=== PATIENT | male | born 1950 | race Caucasian/White ===

== ENCOUNTER 2018-11-12 13:52 | Day surgery (SDC) | payer MEDICARE, OTHER ==
[~2018-11-12] VITALS: Ht 180.3 cm; Wt 108.9 kg
[~2018-11-12 13:52] MED LIST: ASPIR 8181 MG PO; CALCIUM600 MG PO; DICLOFENAC SOD100 MG PO; FLUTICASONE PRO16 GM NS; KEFLEX500 MG PO; METOPROLOL SUCC25 MG PO; PRAVASTATIN SOD10 MG PO; TRAMADOL HCL50 MG PO; ZOCOR10 MG PO
[2018-11-12] MEDS ORDERED: FLOMAX0.4 MG PO (14:14)
--- NOTE | 2018-11-12 15:56 | NUR ---
11/12/18 1556 Phoebe Lama PT ARRIVES TO PACU SLIGHTLY AWAKE, BUT GROGGY.
--- NOTE | 2018-11-13 12:28 | OR ---
[facility] [address] [place], [place] [address] Signed DATE OF OPERATION: 11/12/2018 SURGEON: King Rene MD PREOPERATIVE DIAGNOSIS: History of cecal polyp in 2012 (adenoma). PREOPERATIVE DIAGNOSES: 1. No evidence of recurrent polyps. 2. 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 PROCEDURE: Total colonoscopy to cecum. ANESTHESIA: Intravenous sedation, fentanyl 100 mcg, and Versed 7 mg. INDICATION: A 67-year-old white man, a patient of Kristen Shay and underwent colonoscopy by me in 2011, which showed an adenomatous polyp of the cecum. I would recommend repeat colonoscopy in 5 years. Instead, he presents at this time for consideration of colonoscopy. He has had no bleeding, diarrhea, or constipation problems. He does have significant BPH symptoms including increased urinary frequency. I prescribed Flomax 0.4 mg daily, anticipating a clinical result before formal urologic evaluation if necessary. He was admitted at this time to undergo surveillance colonoscopy. He understands the risks of bleeding, infection, and perforation. FINDINGS: The prep was excellent. Complete colonoscopy was undertaken to the cecum without question. There was no sign of recurrent or persistent polyp of the cecum or elsewhere. There were diverticula of the sigmoid. DESCRIPTION OF PROCEDURE: The patient was brought to the endoscopy suite and placed in lateral decubitus position given intravenous sedation to the point of slurred speech and nystagmus. Digital rectal examination was normal. An Olympus video colonoscope was passed in the rectum and manipulated throughout the colon ultimately intubating the cecum itself. The ileocecal valve and appendiceal orifice were normal. Scope was withdrawn from that point and examination throughout Electronically Signed By: KING RENE MD 11/13/18 1228 PATIENT NAME: DEXTER RIVAS OPERATIVE REPORT DATE OF : 54 REPORT #: [id number] PHYSICIAN: KING RENE MD PCP: NERI SHAY PA-C REPORT IS CONFIDENTIAL AND NOT TO BE RELEASED WITHOUT AUTHORIZATION [facility] [address] [place], [place] [address] Signed showed no sign of abnormality other than a few diverticula of the sigmoid and left colon. Retroflexed view was normal overall. The scope was removed and the patient was taken to recovery room in good condition. CONCLUDING DIAGNOSIS: No evidence of recurrent polyps. PLAN: Recommend repeat colonoscopy in 5 years, sooner if clinically indicated. He will return to the ongoing care of Kristen Shay. Further consideration of urologic evaluation will be undertaken under the direction of his primary provider. MD BIRD Middleton/CORNELIO /[id number] cc: TAYE Hopson Copies: ~ Electronically Signed By: KING RENE MD 11/13/18 1228 PATIENT NAME: DEXTER RIVAS OPERATIVE REPORT DATE OF : 54 REPORT #: [id number] PHYSICIAN: KING RENE MD PCP: NERI SHAY PA-C REPORT IS CONFIDENTIAL AND NOT TO BE RELEASED WITHOUT AUTHORIZATION
== END 2018-11-12 16:28 | disposition home or self-care (01) ==
LOC: DS 13:52 → OPS 13:52 → DS 14:00 → OPS 14:00
PROVIDERS: Surgery
PROC: 0DJD8ZZ Inspection of Lower Intestinal Tract, Via Natural or Artificial Opening Endoscopic (ICD-10-PCS; principal; 2018-11-12 14:00)
DX: Z12.11 Encounter for screening for malignant neoplasm of colon (principal); K57.30 Diverticulosis of large intestine without perforation or abscess without bleeding; E78.5 Hyperlipidemia, unspecified; I10 Essential (primary) hypertension; R35.0 Frequency of micturition; R39.12 Poor urinary stream; Z98.890 Other specified postprocedural states; Z86.010 Personal history of colon polyps
CPT/HCPCS: J2250; J3010; J7120

== ENCOUNTER 2020-01-19 05:45 | Day surgery (SDC) | payer MEDICARE, OTHER ==
[~2020-01-19] VITALS: Ht 180.3 cm; Wt 106.6 kg
--- NOTE | ~2020-01-19 | OR ---
[facility] [address] [facility] [place] [address] [place] DATE OF OPERATION: 01/19/2020 SURGEON: Jason Peters MD PREOPERATIVE DIAGNOSES: 1. Subcentimeter bladder mass, discovered on recent cystoscopy. 2. Benign prostatic hyperplasia with lower urinary tract symptoms. POSTOPERATIVE DIAGNOSES: 1. Subcentimeter bladder mass, discovered on recent cystoscopy. 2. Benign prostatic hyperplasia with lower urinary tract symptoms. NAMES OF PROCEDURES: 1. Transurethral resection of bladder tumor-small. 2. Transurethral resection of prostate. ANESTHESIA: General. ESTIMATED BLOOD LOSS: 30 mL. COMPLICATIONS: None. SPECIMENS: 1. Subcentimeter papillary mass excised from area just superior to the right ureteral orifice. This was placed in a specimen cup and sent to pathology for evaluation. 2. Prostate chips, also sent in a separate cup to pathology for evaluation. DRAINS: A 22-Syrian 3-way Bello catheter, connected to continuous bladder irrigation. INDICATIONS FOR PROCEDURE: Mr. Sousa is a very pleasant 69-year-old gentleman, who was recently discovered to have a subcentimeter papillary mass just superior to the right ureteral orifice on diagnostic cystoscopy. At that time, he was also experiencing severe lower urinary tract symptoms for which he was taking Flomax twice a day with minimal response to the medication. After discovery of the bladder mass, the patient also agreed to undergo concomitant transurethral resection of the prostate, in addition to resection of the 0.5 mm PATIENT NAME: DEXTER SOUSA ALAN OPERATIVE REPORT DATE OF : 54 REPORT #: [id number] PHYSICIAN: JASON PETERS MD PCP: NERI POSEY PA-C REPORT IS CONFIDENTIAL AND NOT TO BE RELEASED WITHOUT AUTHORIZATION [facility] [address] [place], [place] [address] Draft papillary tumor found incidentally on cystoscopy. FINDINGS: 1. Diagnostic cystoscopy again confirmed the presence of a 0.5 mm papillary mass located just superior to the right ureteral orifice. There was also a less than 1 mm lesion located on the inferior rim of the right ureteral orifice. This very small lesion was removed very gently with the loop without using any current to the loop. The 5 mm papillary lesion was removed using a 24-Syrian loop in toto. The base of the biopsy site was then thoroughly cauterized. 2. The prostate gland was resected using bipolar electrocautery with good success. There was a significant amount of hemorrhage during the resection, making visualization less clear. Overall, the bilateral lobes of the prostate were resected extensively and mildly elevated bladder neck was also resected with good success. All of the chips were placed in a specimen cup to be sent to pathology for evaluation. 3. At the end of the procedure, I performed another cystoscopy which revealed a well cauterized biopsy bed, along with no evidence of any iatrogenic damage to the bilateral ureteral orifices. A 22-Syrian three-way Bello catheter was inserted into the patient's bladder over a Sensor wire without difficulty. The catheter was then connected to continuous bladder irrigation. DESCRIPTION OF PROCEDURE: After informed consent was obtained, the patient was taken to the operating room. He was transferred from the [facility] to the operating room table, where general anesthesia was induced. He was then placed in the dorsal lithotomy position and his genitalia prepped and draped in a standard sterile fashion. The patient's urethra was then dilated from 16-Syrian to 28-Syrian without difficulty. A resectoscope was then inserted through the urethra and into the bladder using a visual obturator. I performed a thorough diagnostic cystoscopy prior to this, using a 30-degree lens on a 22.5 Syrian introducer. Once the resectoscope was in good position, I began resection of the subcentimeter papillary mass located just superior to the right ureteral orifice. I then thoroughly cauterized the biopsy bed with ease. The very small 1 mm lesion located on the inferior rim of the right ureteral orifice was very gently excised using the bipolar loop without any cautery. Once I was satisfied that the bladder lesion was successfully removed, I then turned my attention to the prostate. I then began resection with the 24-Syrian loop and using bipolar electrocautery, beginning with the right lobe. The right lateral lobe was resected extensively without difficulty. I then turned my attention to the left lobe of the prostate and again resected the left lobe, almost to the level of the capsule. There was an extensive amount of hemorrhage from the prostatic vessels; however, this was controlled easily with the bipolar electrocautery. I performed a thorough cystoscopy at this time to evaluate the location of the bilateral ureteral orifices, which were a good distance away from the bladder neck. There was no actual median lobe present, however, the bladder neck was quite PATIENT NAME: DEXTER SOUSA OPERATIVE REPORT DATE OF : 54 REPORT #: [id number] PHYSICIAN: JASON PETERS MD PCP: NERI POSEY PA-C REPORT IS CONFIDENTIAL AND NOT TO BE RELEASED WITHOUT AUTHORIZATION [address] [address] [place] elevated. Therefore, the bladder neck was resected a small amount without difficulty. Once the resection was complete, I switched from the bipolar loop to the bipolar button to achieve and maintain hemostasis in both of the resected lobes of the prostate. Once I had achieved adequate hemostasis, a Radha syringe was used to irrigate the prostate chips from the patient's bladder. The patient's bladder was irrigated multiple times and cystoscopy was repeated to be sure that all the prostate chips had been successfully evacuated from the bladder. After removal of the final fragments of prostate chips, I was able to appreciate very minimal blood in the irrigation fluid. With both the bladder and prostate specimens in their appropriate specimen cups, a Sensor wire was then inserted into the patient's bladder through the sheath of the resectoscope. The sheath was then removed fully intact. Over the wire, a 22-Syrian three-way Bello catheter was inserted into the patient's bladder without difficulty. The catheter was inserted easily and then 30 mL of sterile water was then infused into the catheter balloon. The Bello catheter was then manually irrigated without difficulty. The catheter was then connected to continuous bladder irrigation and the procedure was terminated. The patient tolerated the procedure well without any complication. He will now be transferred to the postanesthesia care unit in stable condition. DISPOSITION: I discussed the details of today's procedure with the patient's and answered all of her questions. He will be transferred to the [facility]/surge floor where his continuous bladder irrigation will be maintained. The CBI will be weaned slowly to the off position, keeping the urine clear to light pink in color. His diet will be advanced slowly as tolerated today. He will be given another injection of Rocephin tomorrow morning prior to discharge. Once his CBI has been shut off, he will be unhooked and will be sent home with a Bello catheter to gravity drainage. He was scheduled to return to clinic this to undergo a voiding trial. He was given information on his activity limitations for the next 6 weeks and was also given information on stool softeners to prevent constipation in the perioperative period. MD STONE Rosario/CORNELIO /[id number] PATIENT NAME: DEXTER SOUSA OPERATIVE REPORT DATE OF : 54 REPORT #: [id number] PHYSICIAN: JASON PETERS MD PCP: NERI POSEY PA-C REPORT IS CONFIDENTIAL AND NOT TO BE RELEASED WITHOUT AUTHORIZATION [address] [address] [place] Copies: ~ PATIENT NAME: DEXTER SOUSA OPERATIVE REPORT DATE OF : 54 REPORT #: [id number] PHYSICIAN: JASON PETERS MD PCP: NERI POSEY PA-C REPORT IS CONFIDENTIAL AND NOT TO BE RELEASED WITHOUT AUTHORIZATION
[~2020-01-19 05:45] MED LIST changes: +COQ-10100 MG PO; +FLOMAX0.4 MG PO; +HYDROCODON-ACE1 EA10 PO
--- NOTE | 2020-01-19 08:51 | NUR ---
PT ALERT, ORIENTED AND SUPPORTED BY HIS MARIYA. PT SEEMED RELAXED, AT EASE AND QUESTIONS ASKED AND ANSWERED. DR PETERS IN TO SEE PT, GAVE BLESSING AND WILL FOLLOW NEEDED
--- NOTE | 2020-01-19 09:44 | NUR ---
01/19/20 0944 Sheets,Mayte 0904 PT ARRIVED TO PACU ON 6L VIA MASK, RESP EVEN AND UNLABORED. CBI FLLUSHING AND DRAINAGE CLEAR TO LIGHT PINK IN COLOR AND NOT CLOTS NOTED. VSS. 0978 PT DENIES PAIN AND NAUSEA. O2 REMOVED. PT RPEORTS TO NEED TO VOID AND ROACH INFORMATION GIVEN.
--- NOTE | 2020-01-19 10:15 | NUR ---
PT TRANSFERRED FROM RECOVERY TO ROOM 107 ACCOMPANIED BY , PT IS ALERT, ORIENTED, DENIES PAIN OR NAUSEA, BLADDER IRRIGATION SET UP, URINE IS VERY LIGHT PINK, TUBING IS SECURE, ORDERS NOTED, PT ORIENTED TO ROOM AND CALL LIGHT, DENIES ANY NEEDS.
--- NOTE | 2020-01-19 11:02 | NUR ---
GOING HOME FOR A BIT, LEFT PHONE NUMBER ON BOARD, PT NAPPING BUT READILY OPENS EYES, ROACH IRRIGATION WITH LIGHT PINK URINE FLOWING, CALL LIGHT IN EASY REACH. PT DOES SNORE AND CPAP IS AT HOME BUT PT REFUSES TO WEAR IT PER . EXPLAINED OXIMETER WILL CONT. TO SOUND TO WAKE HIME IF SAT DROPS. PT DOES NOT WANT TO WEAR OXYGEN.
--- NOTE | 2020-01-19 12:45 | NUR ---
PT IS AWAKE SCROLLING ON PHONE, TAKING PO FLUIDS BUT NOT READY TO ORDER LUNCH YET. ROACH ADJUSTED TO MAINTAIN LIGHT COLORED URINE, DENIES PAIN OR NAUSEA, IN GOOD SPIRITS.
--- NOTE | 2020-01-19 13:39 | NUR ---
PT RESTING COMFORTABLY, REQUESTED SPRITE TO DRINK, NOT HUNGRY. CONT. BLADDER IRRIGATION, IVF PATENT, DENIES FURTHER NEEDS.
--- NOTE | 2020-01-19 17:39 | NUR ---
PT ORDERED DINNER, ATE 100%, NO NAUSEA, PAIN ONLY WITH ACTIVITY, BLADDER IRRIGATION CONT. BUT HAS SLOWED SOME, LIGHT PINK URINE. HERE IN ROOM, DENIES ANY NEEDS. IN GOOD SPIRITS.
--- NOTE | 2020-01-19 17:47 | NUR ---
PATIENT RESTING IN BED. IN ROOM. VITAL SIGNS AND I&O DONE. CALL LIGHT WITHIN REACH. NO OTHER NEEDS AT THIS TIME
[2020-01-19] MEDS ORDERED: MOBIC7.5 MG PO (17:56)
[2020-01-19] MEDS ORDERED: METOPROLOL TART25 MG PO (17:57)
--- NOTE | 2020-01-19 19:10 | NUR ---
REPORT RECEIVED FROM DAY SHIFT RN. PT LYING IN BED, ALERT AND ORIENTED. DENIES PAIN OR NAUSEA. CONTINUOUS BLADDER IRRIGATION, URINE LIGHT PINK. IVF INFUSING. PT DENIES NEEDS AT THIS TIME. CALL LIGHT IN REACH. WHITE BOARD UPDATED.
--- NOTE | 2020-01-19 19:23 | NUR ---
MED REC COMPLETE
--- NOTE | 2020-01-19 20:40 | NUR ---
WARM BLANKETS PROVIDED. ASSISSTED PT TO REPOSITION IN BED.
--- NOTE | 2020-01-19 21:40 | NUR ---
EVENING ASSESSMENT COMPLETE. SCHEDULED MEDS ADMINISTERED PER EMAR. PT DENIES PAIN OR NAUSEA. CONTINUOUS BLADDER IRRIGATION PATENT, FOELY DRAINING LIGHT PINK URINE. NO CLOTS NOTED. PT DENIES BLADDER SPASMS. IVF INFUSING. NO FURTHER NEEDS AT THIS TIME. CALL LIGHT IN REACH.
--- NOTE | 2020-01-20 01:30 | NUR ---
VS AND I&O COMPLETE. PT DENIES PAIN. CBI PATENT, ROACH DRAINING LIGHT PINK URINE. IVF INFUSING. PT DENIES NEEDS. CALL LIGHT IN REACH.
--- NOTE | 2020-01-20 03:15 | NUR ---
PT REPOSITIONED IN BED. JELLO AND CRACKERS PROVIDED PER REQUEST. PT DENIES PAIN OR BLADDER SPASMS. BLADDER IRRIGATION CONTINUES, ROACH DRAINING LIGHT PINK URINE. ASSESSMENT COMPLETE.
--- NOTE | 2020-01-20 05:57 | NUR ---
ROACH DRAINING PINK TINGED URINE. CBI CLAMPED AT THIS TIME.
--- NOTE | 2020-01-20 08:00 | NUR ---
PT IS ALERT, WATCHING TV, MAIN COMPLAINT IS BACK ACHING FROM LAYING IN BED, ROACH IRRIGATION IS CLAMPED WITH VERY LIGHT NESHA COLORED URINE AND SMALLL AMOUNT OF SEDIMENT IN TUBING. SECURE. DENIES NAUSEA, PERCOCET GIVEN FOR DISCOMFORT AND PT AGREES TO GET UP TO CHAIR. BREAKFAST ORDERED.
--- NOTE | 2020-01-20 08:17 | NUR ---
PATIENT RESTING IN BED. UPDATED WHITE BOARD. CALL LIGHT WITHIN REACH. NO FURTHER NEEDS AT THIS TIME.
[2020-01-20] MEDS ORDERED: CIPRO500 MG PO (09:00)
[2020-01-20] MEDS ORDERED: PERCOCET 5-3251 EACH PO (09:01)
--- NOTE | 2020-01-20 09:02 | NUR ---
PT REPORTS GOOD PAIN RELIEF AFTER PERCOCET, URINE REMAINS LIGHT PINK WITH SMALL AMOUNT OF SEDIMENT IN TUBING, IRRIGATION REMOVED AND ROACH PLUGED AT IRRIGATION SITE. PT UP WALKING ABOUT ROOM, IN GOOD SPIRITS, IS ON HER WAY TO HOSPITAL, ATE 100% OF BREAKFAST, DISCUSSED GOOD DIET AND NOT GETTING CONSTIPATED, VERBALIZES UNDERSTANDING.
--- NOTE | 2020-01-20 09:43 | NUR ---
REVIEWED DISCHARGE INSTRUCTIONS, FOLLOW UP APPOINTMENT, MEDICATIONS, SX TO REPORT WITH PT AND , ABLE TO DEMONSTRATE EMPTING OF DRAINAGE BAG CORRECTLY, DENIES ANY QUESTIONS OR CONCERNS. PHARMACISTGAIL WAS ALSO IN TO TALK TO BOTH ABOUT MEDS. DC TO HOME AT THIS TIME.
--- NOTE | 2020-01-20 12:15 | NUR ---
CONNECTED WITH PT HE WAS ON WAY OUT-PT LOOKED GOOD. HIS MARIYA WAS IN FRONT TO TAKE PT HOME. GAVE ENCOURAGEMENT AND BLESSING
--- NOTE | 2020-01-21 16:22 | PATH ---
[facility] [address] [facility] [place] [address] Signed SPECIMEN(S): A BLADDER MASS SPECIMEN(S): B PROSTATE CHIPS SPECIMEN SOURCE: A. BLADDER MASS B. PROSTATE CHIPS CLINICAL HISTORY: Pre: BPH, micro hematuria. Post: TURBT, TURB FINAL PATHOLOGIC DIAGNOSIS: A. Mucosa, urinary bladder, biopsy: - Noninvasive papillary urothelial neoplasm (See comment.). B. Prostate, transurethral resection: - Benign glandular and stromal hyperplasia. COMMENT: A: This is a tiny biopsy differential diagnosis is between low grade papillary urothelial carcinoma (favored) and papillary urothelial neoplasm of low malignant potential. No invasive features are seen in the examined sections. As part of [facility] [employer]' Quality Improvement Program, specimen A was reviewed by another member of our pathology staff. MILY:NRT:cml:C NR MICROSCOPIC EXAMINATION: Histologic sections of all submitted blocks are examined by light microscopy. These findings, together with the gross examination, support the pathologic diagnosis. Immunostains for CK20, p53 and Ki-67 are obtained along with appropriately positive controls. The neoplasm shows very low Ki67 staining, weak p53 positivity and essentially no staining for CK20. GROSS DESCRIPTION: Two specimens are received in two containers, labeled "DF." A. The specimen, labeled "DF," and designated on the requisition "bladder mass," is received in formalin and consists of one fragment of pink-ernst to hemorrhagic tissue (0.4 x 0.2 x 0.2 cm). The specimen is submitted entirely in cassette (A1). B. The specimen, labeled "DF," and designated on the requisition "prostate chips," is received in formalin and consists of 14 g of pink-ernst soft to PATIENT NAME: DEXTER RIVAS PATHOLOGY DATE OF : 54 REPORT #: [id number] PHYSICIAN: MEGHAN RODRIGUEZ PCP: NERI POSEY PA-C REPORT IS CONFIDENTIAL AND NOT TO BE RELEASED WITHOUT AUTHORIZATION [facility] [address] [place], [place] [address] Signed rubbery tissue (5.5 x 4.5 x 1.7 cm in aggregate). Approximately 80% of the specimen is submitted in cassettes (B1-B6). AC (under the direct supervision of a pathologist) The Gross Description was prepared using a voice recognition system. The report was reviewed for accuracy; however, sound-alike word errors, addition and/or deletions may occur. If there is any question about this report, please contact Client Services. ADDITIONAL NOTES: Immunohistochemical and/or in situ hybridization studies were performed on this case with the appropriate positive controls that react as expected. This test was developed and its performance characteristics determined by [facility]. It has not been cleared or approved by the U.S. Food and Drug Administration. The FDA has determined that such clearance or approval is not necessary. This test is used for clinical purposes. It should not be regarded as investigational or for research. [facility] is certified under the Clinical Laboratory Improvement Amendments of 1988 (CLIA) as qualified to perform high complexity clinical laboratory testing. PERFORMING LABORATORY: The technical component was performed by [facility], [address] [place] [id number] (Missile Inspector Preflight: Felicita Tse MD; CLIA# [id number]). Professional interpretation was performed by [facility], [facility], [address], [place] [address] (IA# [id number]). Diagnostician: Ritesh Whitt MD Pathologist Electronically Signed 01/21/2020 Copies: ~ PATIENT NAME: DEXTER RIVAS PATHOLOGY DATE OF : 54 REPORT #: [id number] PHYSICIAN: MEGHAN RODRIGUEZ PCP: NERI POSEY PA-C REPORT IS CONFIDENTIAL AND NOT TO BE RELEASED WITHOUT AUTHORIZATION
== END 2020-01-20 09:40 | disposition home or self-care (01) ==
LOC: DS 05:45 → MS 05:45 → DS 06:45 → MS 10:00 → DS 01-20 09:40
PROVIDERS: Urology
PROC: 0V507ZZ Destruction of Prostate, Via Natural or Artificial Opening (ICD-10-PCS; principal; 2020-01-19 06:45)
PROC: 0TBB8ZZ Excision of Bladder, Via Natural or Artificial Opening Endoscopic (ICD-10-PCS; 2020-01-19 06:45)
DX: N40.1 Benign prostatic hyperplasia with lower urinary tract symptoms (principal); R31.29 Other microscopic hematuria; N13.8 Other obstructive and reflux uropathy; D30.3 Benign neoplasm of bladder; I25.10 Atherosclerotic heart disease of native coronary artery without angina pectoris; E78.5 Hyperlipidemia, unspecified; Z79.899 Other long term (current) drug therapy; Z79.82 Long term (current) use of aspirin; Z87.891 Personal history of nicotine dependence
CPT/HCPCS: 00912; C1769; J0696; J1170; J1885; J2001; J2405; J2704; J3010; J7030; J7121

== ENCOUNTER 2020-04-16 14:58 | Emergency (ER) | payer MEDICARE, OTHER ==
[~2020-04-16] VITALS: Ht 180.3 cm; Wt 106.6 kg
--- OUTSIDE RECORDS SUMMARY | ~2020-04-16 | XMS | Encounter Summary ---
Demographics + + + | Address | [address] | | | [place] [address] | + + + | Home Phone | | + + + | Preferred Language | Unknown | + + + | Marital Status | | + + + | Sabianist Affiliation | 1077 | + + + | Race | White | + + + | Ethnic Group | Not or | + + + Author + + + | Author | [facility] | | | and [place] | + + + | Organization | [facility] | | | and [place] | + + + | Address | Unknown | + + + | Phone | Unavailable | + + + Support + + + + + | Name | Relationship | Address | Phone | + + + + + | Georgie Sousa | ECON | [address] | | | | | [place], [place] | | | | | [address] | | + + + + + Care Team Providers + +------+ + | Care Crtts Name | Role | Phone | + +------+ + PCP | Unavailable | + +------+ + Encounter Details +--------+ + + + + | Date | Type | Department | Care Team | Description | +--------+ + + + + | 01/15/ | Hospital | [facility] | Toby Spaulding, | | | 2012 | Encounter | MED CTR [facility] OP | [address] | | | | | [address] | [address] [address] [place], | | | | | [place] | [place] [address] | | | | | [address] | [phone] | | | | | [phone] | | | +--------+ + + + + Social History + +-------+ +--------+------+ | Tobacco Use | Types | Packs/Day | Years | Date | | | | | Used | | + +-------+ +--------+------+ | Never Assessed | | | | | + +-------+ +--------+------+ + + + | Sex Assigned at | Date Recorded | | | | + + + | Not on file | | + + + documented as of this encounter Miscellaneous Notes Op Note - Toby Spaulding MD - 01/15/2013 1:41 [place] [address] Patient Name: DEXTER SOUSA Provider: Toby Spaulding MD Unit #: [id number] Location: [facility] #: [id number] : 1950 DATE: 01/15/2013 PREOPERATIVE DIAGNOSES 1. Obstructive sleep apnea. 2. Tonsillar hypertrophy. 3. Septal deformity. 4. Inferior turbinate hypertrophy. POSTOPERATIVE DIAGNOSES 1. OBSTRUCTIVE SLEEP APNEA. 2. TONSILLAR HYPERTROPHY. 3. SEPTAL DEFORMITY. 4. INFERIOR TURBINATE HYPERTROPHY. PROCEDURES 1. Tonsillectomy. 2. Palatopharyngoplasty. 3. Septoplasty. 4. Cautery of the inferior turbinates. SURGEON: Toby Spaulding MD ANESTHESIA: General orotracheal, Dr. Johana Houston. PREOPERATIVE HISTORY: Mr. Sousa is a 62-year-old man with obstructive sleep apnea. He canno t tolerate CPAP, mainly from the standpoint of nasal obstruction. He has had inferior turbi juan alberto hypertrophy and septal deformity identified in the office and by CAT scan. He has fail ed conservative medications, including antibiotics, oral and nasal steroids, antihistamines , decongestants, and he is taken to the operating room for the above-mentioned procedures. OPERATIVE PROCEDURE AND FINDINGS: After informed consent, the patient was taken to the ope rating room , placed in the supine position where general orotracheal anesthesia was induce d. The patient and procedure were verified. The patient received preoperative intranasal ox ymetazoline and intraoperative intravenous Ancef. The patient was repositioned. McIvor mouth gag placed into suspension. Headlight exam of t he pharynx showed mildly hypertrophic tonsils, a long elongated obstructive soft palate and uvula. The left tonsil was grasped with a tenaculum, retracted medially, and removed from its fossa with mucosal- sparing incisions with Coblation. Same procedure on the right tonsi l. The tonsils were discarded. Palatopharyngoplasty was then performed. Digital palpation of the soft palate against the posterior pharyngeal wall determined the length of excision. Basically, the Coblator was us ed to extend the superior tonsillar fossa incision across the midline. A portion of the pos terior tonsillar pillar was also excised. Transmural palatal resection performed. Tissue di scarded. Hemostasis was verified, both the tonsil fossae and the palatal operative site. Th e operative site was closed with 4-0 interrupted Vicryl, reapproximating posterior and ante rior tonsillar pillar mucosa on each side, extending up onto the soft palate, reapproximati ng posterior and anterior palatal mucosa. Excellent cosmetic closure and improvement was ob tained. The pharynx was suctioned clear of blood and secretions. Hemostasis was verified. T he mouth gag was removed. The patient was repositioned. Headlight nasal speculum exam of the nasal cavity showed goo d decongestion of the inferior turbinates, septal deformity on the left side, a large spur, and mucosa was injected with 1% lidocaine with epinephrine. Elevation of the mucosa off th e spur on the left side was performed with a Yogesh elevator. All deviated septal cartilage and bone was then excised with a Leslee. The septum was improved in this manner. Septum was medialized, in addition, with the nasal speculum. Inferior turbinates were then treated with suction with the long handle needlepoint cauter y, beginning on the right side, the inferior turbinate mucosa medially, inferiorly was caut erized extending from anterior to posterior. Good reduction in size of the turbinate was ob tained. The same procedure on the left inferior turbinate. Packing was then placed, trimmed Merocel coated with Neosporin, equal amount on each side, impregnated with lidocaine with epinephrine, tied anteriorly over a pad. The pharynx was then clear of blood and secretions . The patient was awakened, extubated, and transported to the recovery room in good conditio n. COMPLICATIONS: No complications. BLOOD LOSS: Minimal. SPECIMEN: No specimen. DRAINS: No drains. PACKING: One piece of Merocel in each nostril. DICTATED BY: Toby Spaulding MD Otolaryngology JOB #: [id number] EXT JOB #:[id number] <<Signature on File>> Toby Spaulding MD 1024 < documented in this encounter Plan of Treatment Not on filedocumented as of this encounter Visit Diagnoses Not on filedocumented in this encounter"
--- OUTSIDE RECORDS SUMMARY | ~2020-04-16 | XMS | Clinical Summary ---
Demographics + + + | Address | [address] | | | [place] [address] | + + + | Home Phone | | + + + | Preferred Language | Unknown | + + + | Marital Status | Single | + + + | Zoroastrianism Affiliation | PRO | + + + | Race | White | + + + | Ethnic Group | Not or | + + + Author + + + | Author | [facility] | + + + | Organization | [facility] | + + + | Address | Unknown | + + + | Phone | Unavailable | + + + Care Team Providers + +------+ + | Care Bed Placement Coordinator Name | Role | Phone | + +------+ + PCP | Unavailable | + +------+ + Source Comments LELA is fully live on both [facility] and [facility] Allergies Not on File Medications Not on file Active Problems Not on file Social History + +-------+ +--------+------+ | Tobacco [...] on file | | + + + Last Filed Vital Signs Not on file Plan of Treatment + + +-------+ + | Health Maintenance | Due Date | Last | Comments | | | | Done | | + + +-------+ + | Pneumococcal | | | | | vaccination (1 of 1 | 8 | | | | - PPSV23) | | | | + + +-------+ + | Influenza (Flu) | | | | | vaccination (#1) | 0 | | | + + +-------+ + Results Not on filefrom Last 3 Months Insurance +-------+--------+ +--------+ + +------+ | Payer | Benefi | Subscriber | Effect | Phone | Address | Type | | | t Plan | ID | zuly | | | | | | / | | Dates | | | | | | Group | | | | | | +-------+--------+ +--------+ + +------+ | MODA | MODA | [id number] | 04/26/ | [phone] | [address] | PPO | | | [place] | | 2008-P | [address] | [id number] | | | | [place] | | resent | | [place], | | | | | | | | [place] [address] | | +-------+--------+ +--------+ + +------+ + +--------+ +--------+ + + | Guarantor Name | Accoun | Relation to | Date | Phone | Billing Address | | | t Type | Patient | of | | | | | | | | | | + +--------+ +--------+ + + | Eduin Sousa | Person | Self | [birth year] | [address] | | | al/Fam | | 1951 | [phone] | [place] | | | [place] | | | [address] (Home) | [address] | + +--------+ +--------+ + +"
--- OUTSIDE RECORDS SUMMARY | ~2020-04-16 | XMS | Encounter Summary ---
Demographics + + + | Address | [address] | | | [place] [address] | + + + | Home Phone | | + + + | Preferred Language | Unknown | + + + | Marital Status | | + + + | Sabianism Affiliation | 1077 | + + + | Race | White | + + + | Ethnic Group | Not or | + + + Author + + + | Author | [facility] | | | and [place] | + + + | Organization | [facility] | | | and [place] | + + + | Address | Unknown | + + + | Phone | Unavailable | + + + Support + + + + + | Name | Relationship | Address | Phone | + + + + + | Georgie Sousa | ECON | [address] | | | | | [place] | | | | | [address] | | + + + + + Care Team Providers + +------+ + | Care Human Resources Services Specialist Name | Role | Phone | + +------+ + | Nivia Shay | PCP | | | PA-C | | | + +------+ + Reason for Visit + + + | Reason | Comments | + + + | Follow-up | | + + + Encounter Details +--------+---------+ + + + | Date | Type | Department | Care Team | Description | +--------+---------+ + + + | 04/14/ | Office | [facility] | Noble Gonzalez, | Coronary artery | | 2020 | Visit | CARDIOLOGY [place] | [address] | disease involving | | | | [address] | [place], [place] | [place] coronary | | | | [address] | [address] | artery of [place] | | | | [place] | | heart without angina | | | | [address] | | pectoris (Primary | | | | [phone] | | Dx); Mixed | | | | | | dyslipidemia; | | | | | | Pre-diabetes | +--------+---------+ + + + Social History + +-------+ +--------+------+ | Tobacco Use | Types | Packs/Day | Years | Date | | | | | Used | | + +-------+ +--------+------+ | Former Smoker | | 2 | | | + +-------+ +--------+------+ + +---+---+---+ | Smokeless Tobacco: | | | | | Never Used | | | | + +---+---+---+ + + +---------+ + | Alcohol Use | Drinks/Week | oz/Week | Comments | + + +---------+ + | Yes | | | Occasional | + + +---------+ + + + + | Sex Assigned at | Date Recorded | | | | + + + | Not on file | | + + + documented as of this encounter Last Filed Vital Signs + + + + + | Vital Sign | Reading | Time Taken | Comments | + + + + + | Blood Pressure | 108/58 | 04/14/2020 11:30 AM | | | | | PDT | | + + + + + | Pulse | 60 | 04/14/2020 11:30 AM | | | | | PDT | | + + + + + | Temperature | - | - | | + + + + + | Respiratory Rate | - | - | | + + + + + | Oxygen Saturation | 96% | 04/14/2020 11:30 AM | | | | | PDT | | + + + + + | Inhaled Oxygen | - | - | | | Concentration | | | | + + + + + | Weight | 112.9 kg (249 lb) | 04/14/2020 11:30 AM | | | | | PDT | | + + + + + | Height | 180.3 cm (5' 11") | 04/14/2020 11:30 AM | | | | | PDT | | + + + + + | Body Mass Index | 34.73 | 04/14/2020 11:30 AM | | | | | PDT | | + + + + + documented in this encounter Progress Notes Noble Gonzalez MD - 04/14/2020 11:30 AM PDTFormatting of this note might be different f rom the original. Date of visit: 04/14/2020 Primary Care Physician: Nivia Shay PA-C CHIEF COMPLAINT: Chief Complaint Patient presents with Follow-up HISTORY OF PRESENT ILLNESS: Eduin is 69 y.o. here for presented in for a follow-up visit. History of coronary artery di sease in mid LAD on medical management, diagnosed prior to 2006. No exercise pattern, however no symptoms at his level of activity. Has been taking his statin intermittently with Livalo/pivastatin every other day. Usually c omplains of bilateral shoulder pain. He followed up with an [place] [facility] cardiology until 2010 and then transferred to Dr. Espinoza. Past medical history, SH, FH, and medications were reviewed in the chart. Medications: Outpatient Encounter Medications as of 04/14/2020 Medication Sig Dispense Refill ascorbic acid (VITAMIN C) 500 MG tablet Take 500 mg by mouth daily. [DISCONTINUED] Calcium Carbonate (CALCIUM 600 PO) Take 600 mg by mouth daily. Coenzyme Q10 (COQ10 PO) Take 1 tablet by mouth daily. Ibuprofen (ADVIL PO) Take by mouth as needed. meloxicam (MOBIC) 7.5 mg tablet Take 7.5 mg by mouth as needed for Pain. metoprolol tartrate (LOPRESSOR) 25 mg tablet Take 25 mg by mouth daily. Naproxen Sodium (ALEVE PO) Take by mouth as needed. pitavastatin (LIVALO) 2 mg tablet Take by mouth nightly. No facility-administered encounter medications on file as of 04/14/2020. Allergies No Known Allergies REVIEW OF SYSTEMS: Constitutional: negative for fatigue. No fever, chills, and rigors. No report of weight ch rere. HEENT: Negative for nosebleeds, ear discharge, nasal congestion or soar throat. Eyes: Negative for visual disturbance, redness, or secretion. Respiratory: Negative for cough, sputum production, hemoptysis, wheezing. Cardiovascular: as HPI. Gastrointestinal: Negative for nausea, vomiting, diarrhea, abdominal pain and blood in stoo l. Genitourinary: Negative for dysuria or hematuria. Musculoskeletal: Chronic arthritic pain. Skin: Negative for rash. Neurological: Negative for dizziness. No numbness. No recent falls. No slurred speech. Hematological: No significant bruising. Psychiatric/Behavioral: No depression or anxiety. PHYSICAL EXAM Vital Signs: BP 108/58 | Pulse 60 | Ht 1.803 m (5' 11") | Wt 112.9 kg (249 lb) | SpO2 96% | BMI 34. 73 kg/m GENERAL APPEARANCE: Alert, oriented, cooperative, no distress, appears stated age. HEENT: Extraocular movements were intact. No jaundice. Pupiles round and reactive. NECK: No JVD, lymphadenopathy. Carotid upstrokes normal. No carotid bruit heard. CARDIAC: Regular rhythm and rate. There is normal S1 and S2. No galop. No murmur. CHEST: Normal bilateral symmetrical chest excursion.ackles or wheezing. No evidence of dull ness. ABDOMEN: Soft.No tenderness or guarding. No palpable organs. Active bowel sounds. EXTREMITIES: No lower extremities edema, cyanosis or clubbing. NEURO: Alert and oriented times three with no focal deficit. Cranial nerves are grossly no rmal. SKIN: Warm and dry. No rash. Psych: Normal affect and mood. DATA 02/12/2018 WBC 5.8, hemoglobin 15.3, platelets 183. Hemoglobin A1c 6.0, TSH 2.39, sodium 142, potassiu m 4.1, chloride 106, bicarbonate 20, and 23, creatinine 0.93. AST 21, AST 38, alk phos 70, total cholesterol 183, triglycerides 89, HDL 46, LDL 118. No results found for: NA, K, CO2, BUN, LABCREA, CALCIUM, MG No results found for: WBC, HGB, HCT, MCV, LABPLAT No results found for: CHOL, TRIG, HDL, LDLEX, GLUF, TSH EC12/30/2019 From [facility] reviewed showed sinus bradycardia otherwise normal EKG. Last Ec ho: Last stress test: 2009 No evidence of ischemia. Last cath: 2006 Reported to have mid LAD stenosis 60% after diagonal branch take off diagonal branch. Last US carotid: ASSESSMENT: Patient is 69 y.o. with 1. Coronary artery disease, reported moderate LAD mid segment stenosis 60% at the takeoff o f diagonal branch. No anginal symptoms. 2. Hypertension blood pressures controlled. 3. Dyslipidemia. 4. Obesity. 5. Prediabetes. 6. Asymptomatic sinus bradycardia. Recommendation: Patient continues to deny any anginal symptoms. Continue with pitavastatin. Was tested with 4 other statins with similar complaints. Will continue with medical therapy with Statin and metoprolol 25 mg bid. Discussed with patient lifestyle modification and weight loss. Will call with any symptoms or change in symptoms. *This report has been prepared using a voice recognition system. The report was reviewed fo r accuracy, however, sound-alike word errors, addition and/or deletions may occur. If there is any question about this report please contact me. Noble Gonzalez MD, MPH documented in this encounter Plan of Treatment Not on filedocumented as of this encounter Visit Diagnoses + + | Diagnosis | + + | Coronary artery disease involving [place] coronary artery of [place] heart without | | angina pectoris - Primary | + + | Mixed dyslipidemia Mixed hyperlipidemia | + + | Pre-diabetes Other abnormal glucose | + + documented in this encounter
--- OUTSIDE RECORDS SUMMARY | ~2020-04-16 | XMS | Encounter Summary ---
Demographics + + + | Address | [address] | | | [place] [address] | + + + | Home Phone | | + + + | Preferred Language | Unknown | + + + | Marital Status | | + + + | Buddhist Affiliation | 1077 | + + + | Race | White | + + + | Ethnic Group | Not or | + + + Author + + + | Author | [facility] | | | and [place] | + + + | Organization | [facility] | | [...] [place], [place] | | | | | [address] | | + + + + + Care Team Providers + +------+ + | Care Drop Wire Builder Name | Role | Phone | + +------+ + PCP | Unavailable | + +------+ + Encounter Details +--------+ + + + + | Date | Type | Department | Care Team | Description | +--------+ + + + + | 01/03/ | Hospital | [facility] | Toby Spaulding, | | | 2012 | Encounter | MED CTR XRAY [address] | | | | | [place] | [address] [address] [place], | | | | | [place] [address] | [place] [address] | | | | | [phone] | [phone] | | | | | | | | +--------+ + + + [...] + + documented as of this encounter Plan of Treatment Not on filedocumented as of this encounter Procedures + +--------+ + + + | Procedure Name | Priori | Date/Time | Associated Diagnosis | Comments | | | ty | | | | + +--------+ + + + | CT SINUS WO CONTRAST | Routin | 01/03/2013 | | Results for this | | LIMITED | e | 11:48 AM | | procedure are in the | | | | PDT | | results section. | + +--------+ + + + documented in this encounter Results CT Sinus WO Contrast Limited (01/03/2013 11:48 AM PDT) + + | Specimen | + + | | + + + + + | Narrative | Performed At | + + + | [facility] | TRENARY | | Department [address] [facility] Grimes MD | [facility] | | [ rep ct [address]] [ rep ct [facility] | | st zip] Signed | - IMAGING | | | | | Patient Name: DEXTER SOUSA A Physician: | | | CRAB.01 : 1950 Age: 62 Sex: M Unit #: [id number] | | | Exam Date: 01/03/13 Location: [facility] | | | Report #: [id number] Page: | | | %(RAD)RES..mtdd.print.filter("pg") of %(RAD) | | | RES..mtdd.print.filter("tpg") | | | | | | Accession Number: [id number] | | | CT SINUSES, 01/03/2013 CLINICAL HISTORY: CHRONIC | | | SINUSITIS. COMPARISON: None. TECHNIQUE: | | | Noncontrast imaging is performed through the paranasal sinuses. | | | FINDINGS: The frontal sinuses are clear bilaterally. | | | Frontoethmoid recesses are clear. The ethmoid air cells are | | | clear. The sphenoid sinuses are clear. There is mild bilateral | | | diffuse mucosal thickening throughout both maxillary sinuses. The | | | ostiomeatal units are patent bilaterally. No significant nasal | | | septal deviation or spurring. No visible intranasal masses. The | | | middle ear cavities are clear. Facial bones are | | | intact. Mild atherosclerotic disease is present within the cavernous | | | carotids. IMPRESSION: 1. MILD BILATERAL | | | MUCOSAL THICKENING THROUGHOUT THE MAXILLARY SINUSES. | | | Dictated Date/Time: 01/03/2013 11:48 Transcribed Date/Time: | | | 01/03/2013 12:27 Bad Work Gatherer: | | | <<Signature on File>> | | | Carl | | | Bakari Godoy MD01/03/13 1650 <Electronically signed by Carl Villegas | | | Walt HUDSON> Carl Godoy MD 01/03/13 4438 | | | Bad Work Gatherer: SeatGeek Ypamaqwyyeiob49/28/13 1227 | | | Toby Spaulding MD | | + + + + + + + + | Performing | Address | City/State/Zipcode | Phone Number | | Organization | | | | + + + + + | [facility] | [address] | [place] | [phone] | | [facility] | | [address] | | | - IMAGING | | | | + + + + + documented in this encounter Visit Diagnoses Not on filedocumented in this encounter
--- OUTSIDE RECORDS SUMMARY | ~2020-04-16 | XMS | Encounter Summary ---
Demographics + + + | Address | [address] | | | [place] [address] | + + + | Home Phone [...] Author + + + | Author | [facility] | + + + | Organization | [facility] | + + + | Address | Unknown | + + + | Phone | Unavailable | + + + Care Team Providers + +------+ + | Care Gold Cutter Name | Role | Phone | + +------+ + PCP | Unavailable | + +------+ + Encounter Details +--------+ + + + + | Date | Type | Department | Care Team | Description | +--------+ + + + + | 12/14/ | Hospital | Dermatopathology | | | | 2011 | Encounter | [address] | | | | | | Mailcode: [id number] | | | | | | [facility] | | | | | | and Healing, | | | | | | [address], [address] | | | | | | Floor [place], [place] | | | | | | [address] | | | | | | [phone] | | | +--------+ + + + [...] | + +--------+ + + + | DERMATOPATHOLOGY(WET | Routin | 12/15/2011 | | Results for this | | [facility]) | e | | | procedure are in the | | | | | | results section. | + +--------+ + + + documented in this encounter Results DERMATOPATHOLOGY(WET [facility]) (12/15/2011) + + + + + + | Component | Value | Ref Range | Performed | Pathologist | | | | | At | Signature | + + + + + + | DERMATOPATH | SOURCE OF SPECIMEN:A Rt. | | [facility] | | | OLOGY(WET | mid forehead, punch | | DERMATOPATH | | | MNT) | biopsy CLINICAL | | OLOGY | | | | DESCRIPTION:R/o | | | | | | atypia/malignancy. | | | | | | GROSS | | | | | | DESCRIPTION:Received in | | | | | | formalin is a specimen | | | | | | labeled Eduin Sousa:A: | | | | | | Specimen consists of a | | | | | | 5mm punch of ernst skin | | | | | | cut to a depth of 4mm. | | | | | | Thesurgical margin is | | | | | | inked green; the tissue | | | | | | is bisected, and | | | | | | entirelysubmitted in | | | | | | cassette A1. | | | | | | MICROSCOPIC | | | | | | DESCRIPTION:There is a | | | | | | slightly domed papule | | | | | | containing a well | | | | | | circumscribedmelanocytic | | | | | | neoplasm. Cords, | | | | | | strands, and nests of | | | | | | melanocytes | | | | | | aredistributed in | | | | | | wedge-shaped | | | | | | distribution throughout | | | | | | most of the dermis. | | | | | | Themelanocytic nuclei | | | | | | are small to moderately | | | | | | large and uniform. | | | | | | DIAGNOSIS:MELANOCYTIC | | | | | | NEVUS, INTRADERMAL TYPE. | | | | | | NOTE: The nevus | | | | | | is narrowly excised. | | | | | | CRW:emr12/19/11 | | | | | | My electronic signature | | | | | | indicates that I have | | | | | | personally reviewed | | | | | | alldiagnostic slides, | | | | | | the gross and/or | | | | | | microscopic portion of | | | | | | thisreport and | | | | | | formulated the final | | | | | | diagnosis. | | | | | | Rendering Diagnostician: | | | | | | Daniel Wright Jr., | | | | | | | | | | | | PaulPathologistBabari | | | | | | sweetie Signed 12/19/2011 | | | | | | 5:24PM | | | | + + + + + + + + | Specimen | + + | | + + + + + + + | Performing | Address | City/State/Zipcode | Phone Number | | Organization | | | | + + + + + | [facility] | [address] | [place] | | | DERMATOPATHOLOGY | [address] | | | + + + + + | [facility] | [address] | [place] | | | DERMATOPATHOLOGY | [address] | | | + + + + + documented in this encounter Visit Diagnoses Not on filedocumented in this encounter"
--- OUTSIDE RECORDS SUMMARY | ~2020-04-16 | XMS | Encounter Summary ---
Demographics + + + | Address | [address] | | | [place] [address] | + + + | Home Phone | | + + + | Preferred Language | Unknown | + + + | Marital Status | | + + + | Temple Affiliation | 1077 | + + + | Race | White | + + + | Ethnic Group | Not or | + + + Author + + + | Author | [facility] | | | and [place] | + + + | Organization | [facility] | | | and [...] [place] | | | | | [address] | | + + + + + Care Team Providers + +------+ + | Care Language Specialist Name | Role | Phone | + +------+ + | Nivia Shay | PCP | | | PA-C | | | + +------+ + Reason for Visit + + + | Reason | Comments | + + + | Annual Exam | | + + + Encounter Details +--------+---------+ + + + | Date | Type | Department | Care Team | Description | +--------+---------+ + + + | 04/02/ | Office | [facility] | Noble Gonzalez, | Coronary artery | | 2019 | Visit | CARDIOLOGY DESIRAE | [address] | disease involving | | | | [address] | [place], [place] | sycuan coronary | | | | [address] | [address] | artery of sycuan | | | | [place] | | heart without angina | | | | [address] | | pectoris (Primary | | | | [phone] | | Dx); Encounter for | | | | | | annual health | | | | | | examination; Mixed | | | | | | dyslipidemia | +--------+---------+ + + + Social History [...] +---------+ + | Yes | | | Alcoholic | | | | | Drinks/day: occ | + + +---------+ + + + [...] + + + | Blood Pressure | 124/72 | 04/02/2019 9:01 AM | | | | | PDT | | + + + + + | Pulse | 70 | 04/02/2019 9:01 AM | | | | | PDT | | + + + + + | Temperature | - | - | | + + + + + | Respiratory Rate | - | - | | + + + + + | Oxygen Saturation | 98% | 04/02/2019 9:01 AM | | | | | PDT | | + + + + + | Inhaled Oxygen | - | - | | | Concentration | | | | + + + + + | Weight | 115.6 kg (254 lb | 04/02/2019 9:01 AM | | | | 12.8 oz) | PDT | | + + + + + | Height | 180.3 cm (5' 11") | 04/02/2019 9:01 AM | | | | | PDT | | + + + + + | Body Mass Index | 35.54 | 04/02/2019 9:01 AM | | | | | PDT | | + + + + + documented in this encounter Progress Notes Noble Gonzalez MD - 04/02/2019 9:15 AM PDTFormatting of this note might be different f rom the original. Date of visit: 04/02/2019 Primary Care Physician: Nivia Shay PA-C CHIEF COMPLAINT: Chief Complaint Patient presents with Annual Exam HISTORY OF PRESENT ILLNESS: Eduin is 68 y.o. here for presented in for a follow-up visit. History of coronary artery di sease in mid LAD managed medically diagnosed prior to 2006. No clear anginal symptoms or shortness of breath. Less active than last year. Has been taking his statin intermittently with Livalo/pivastatin. Usually complains of bila teral shoulder pain. At that time patient had coronary angiogram that showed moderate disease and mid LAD. At th at time was treated medically. He had multiple stress test evaluation after that were negati ve for any ischemic burden. He followed up with an [facility] until 2010 and then transferred to Dr. Alexis mejia h he saw around 1-2 years ago. Continues to be active with golfing and yard work without any cardiac limitation. Past medical history, SH, FH, and medications were reviewed in the chart. Medications: Outpatient Encounter Medications as of 04/02/2019 Medication Sig Dispense Refill ascorbic acid (VITAMIN C) 500 MG tablet Take 500 mg by mouth daily. Calcium Carbonate (CALCIUM 600 PO) Take 600 mg by mouth daily. Coenzyme Q10 (COQ10 PO) Take 1 tablet by mouth daily. [DISCONTINUED] fluticasone (FLONASE) 50 mcg/nasal spray 1 spray by Each Nare route bartolome y as needed for Rhinitis. (Patient not taking: Reported on 04/02/2019) Ibuprofen (ADVIL PO) Take by mouth as needed. metoprolol tartrate (LOPRESSOR) 25 mg tablet Take 25 mg by mouth daily. Naproxen Sodium (ALEVE PO) Take by mouth as needed. pitavastatin (LIVALO) 2 mg tablet Take by mouth nightly. [DISCONTINUED] pitavastatin (LIVALO) 2 mg tablet Take 2 mg by mouth daily. (Patient not taking: Reported on 04/02/2019) No facility-administered encounter medications on file as of 04/02/2019. Allergies No Known Allergies REVIEW OF SYSTEMS: [...] Genitourinary: Negative for dysuria or hematuria. Musculoskeletal: arthritic pain. Skin: Negative for rash. Neurological: Negative for dizziness. No numbness. No recent falls. No slurred speech. Hematological: No significant bruising. Psychiatric/Behavioral: No depression or anxiety. PHYSICAL EXAM Vital Signs: BP 124/72 | Pulse 70 | Ht 1.803 m (5' 11") | Wt 115.6 kg (254 lb 12.8 oz) | SpO2 98% | BMI 35.54 kg/m GENERAL APPEARANCE: Alert, oriented, cooperative, no [...] for: CHOL, TRIG, HDL, LDLEX, GLUF, TSH EC04/02/2019 Ordered and reviewed by myself shows sinus bradycardia otherwise normal EKG. Last Echo: Last stress test: 2009 No evidence of ischemia. Last cath: 2006 Reported to have mid LAD stenosis 60% after diagonal branch take off diagonal branch. Last US carotid: ASSESSMENT: Patient is 68 y.o. with 1. Coronary artery disease, moderate LAD mid segment stenosis 60% at the takeoff of diagona l branch. No anginal symptoms. 2. Hypertension blood pressures controlled. 3. Dyslipidemia with elevated LDL. 4. Obesity BMI of 34.8. 5. Prediabetes. 6. Asymptomatic sinus bradycardia. Recommendation: Patient continues to be stable with no clear anginal symptoms. Will obtain blood work from Dr. Shay office. Continue with pitavastatin. Patient attempted taking it every other day, currently on low-dose. Was tested with 4 other statins with similar complaints. Will continue with medical therapy with Statin and BB. Discussed with patient lifestyle modification and weight [...] | + +--------+ + + + | ECG 12 LEAD | Routin | 04/02/2019 | Coronary artery | Results for this | | | e | 9:09 AM | disease involving | procedure are in the | | | | PDT | sycuan coronary | results section. | | | | | artery of sycuan | | | | | | heart without angina | | | | | | pectoris Encounter | | | | | | for annual health | | | | | | examination | | + +--------+ + + + documented in this encounter Results ECG 12 lead (04/02/2019 9:09 AM PDT) + + + + + + | Component | Value | Ref Range | Performed | Pathologist | | | | | At | Signature | + + + + + + | VENTRICULAR | 58 | BPM | [facility] | | | RATE EKG | | | | | + + + + + + | ATRIAL RATE | 58 | BPM | [facility] | | + + + + + + | P-R | 166 | ms | [facility] | | | INTERVAL | | | | | + + + + + + | QRS | 102 | ms | [facility] | | | DURATION | | | | | + + + + + + | Q-T | 404 | ms | [facility] | | | INTERVAL | | | | | + + + + + + | Q-T | 396 | ms | [facility] | | | INTERVAL | | | | | | (CORRECTED) | | | | | + + + + + + | P WAVE AXIS | 40 | degrees | [facility] | | + + + + + + | QRS AXIS | 24 | degrees | [facility] | | + + + + + + | T AXIS | 24 | degrees | [facility] | | + + + + + + | INTERPRETAT | Sinus | | [facility] | | | ION TEXT | bradycardiaOtherwise | | | | | | normal ECGWhen compared | | | | | | with ECG of 27-MAR-2018 | | | | | | 10:03,No significant | | | | | | change was foundPlease | | | | | | refer to Providers | | | | | | office visit note for | | | | | | Providers | | | | | | Interpretation.Confirmed | | | | | | by [facility] [place] Read Only, | | | | | | [facility] ([id number]), | | | | | | index editor Stevie Lovelace | | | | | | ([id number]) on 04/02/2019 | | | | | | 10:54:09 AM | | | | + + + + + + + + | Specimen | + + | | + + + + + | Narrative | Performed At | + + + | | | + + + + +---------+ + + | Performing | Address | City/State/Zipcode | Phone Number | | Organization | | | | + +---------+ + + | [facility] | | | | + +---------+ + + documented in this encounter Visit Diagnoses + + | Diagnosis | + + | Coronary artery disease involving sycuan coronary artery of sycuan heart without | | angina pectoris - Primary | + + | Encounter for annual health examination Routine general medical examination at a | | health care facility | + + | Mixed dyslipidemia Mixed hyperlipidemia | + + documented in this encounter
--- OUTSIDE RECORDS SUMMARY | ~2020-04-16 | XMS | Encounter Summary ---
Demographics + + + | Address | [address] | | | [place] [address] | + + + | Home Phone | | + + + | Preferred Language | Unknown | + + + | Marital Status | | + + + | Anglican Affiliation | 1077 | + + + | Race | White | + + + | Ethnic Group | Not or | + + + Author + + + | Author | [facility] | | | and [place] | + + + | Organization | [facility] | | | and [place] | + + + | Address | Unknown | + + + | Phone | Unavailable | + + + Support + + + + + | Name | Relationship | Address | Phone | + + + + + | Georgie Sousa | ECON | [address] | | | | | [place] | | | | | [address] | | + + + + + Care Team Providers + +------+ + | Care Admiralty Lawyer Name | Role | Phone | + +------+ + | Nivia Shay | PCP | | | PA-C | | | + +------+ + Encounter Details +--------+ + + + + | Date | Type | Department | Care Team | Description | +--------+ + + + + | 09/20/ | Orders Only | [facility] | Conversion | | | 2017 | | CONVERSION [address] | Transaction, | | | | | [address] | Provider Unknown | | | | | [place], [place] | [phone] | | | | | [address] | | | | | | [phone] | | | +--------+ + + + [...]
--- OUTSIDE RECORDS SUMMARY | ~2020-04-16 | XMS | Clinical Summary ---
Demographics + + + | Address | [address] | | | [place] [address] | + + + | Home Phone | | + + + | Preferred Language | Unknown | + + + | Marital Status | | + + + | Catholic Affiliation | 1077 | + + + | Race | White | + + + | Ethnic Group | Not or | + + + Author + + + | Author | [facility] | | | and [place] | + + + | Organization | [facility] | | | and [...] [place] | | | | | [address] | | + + + + + Care Team Providers + +------+ + | Care Sales And Service Consultant Name | Role | Phone | + +------+ + | Nivia Shay | PCP | | | PA-C | | | + +------+ + Allergies No Known Allergies Medications + + + +---------+------+------+-------+ | Medication | Sig | Dispensed | Refills | Star | End | Statu | | | | | | t | Date | s | | | | | | Date | | | + + + +---------+------+------+-------+ | Coenzyme Q10 | Take 1 tablet by | | 0 | 09/2 | | Activ | | (COQ10 PO) | mouth daily. | | | 0/20 | | e | | | | | | 17 | | | + + + +---------+------+------+-------+ | Naproxen Sodium | Take by mouth as | | 0 | 09/2 | | Activ | | (ALEVE PO) | needed. | | | 0/20 | | e | | | | | | 17 | | | + + + +---------+------+------+-------+ | Ibuprofen (ADVIL | Take by mouth as | | 0 | 09/2 | | Activ | | PO) | needed. | | | 0/20 | | e | | | | | | 17 | | | + + + +---------+------+------+-------+ | ascorbic acid | Take 500 mg by mouth | | 0 | 09/2 | | Activ | | (VITAMIN C) 500 MG | daily. | | | 0/20 | | e | | tablet | | | | 17 | | | + + + +---------+------+------+-------+ | metoprolol | Take 25 mg by mouth | | 0 | 09/2 | | Activ | | tartrate (LOPRESSOR) | daily. | | | 0/20 | | e | | 25 mg tablet | | | | 17 | | | + + + +---------+------+------+-------+ | pitavastatin | Take by mouth | | 0 | | | Activ | | (LIVALO) 2 mg tablet | nightly. | | | | | e | + + + +---------+------+------+-------+ | meloxicam (MOBIC) | Take 7.5 mg by mouth | | 0 | | | Activ | | 7.5 mg tablet | as needed for Pain. | | | | | e | + + + +---------+------+------+-------+ | aspirin 81 mg | Chew and swallow 1 | | 0 | | | Activ | | chewable tablet | tablet Daily. | | | | | e | + + + +---------+------+------+-------+ | Calcium Carbonate | Take 600 mg by mouth | | 0 | 03/10 | | Disco | | (CALCIUM 600 PO) | daily. | | | | 01/25 | ntinu | | | | | | | | ed | | | | | | | | (Ther | | | | | | | | apy | | | | | | | | compl | | | | | | | | eted) | + + + +---------+------+------+-------+ Active Problems + + + | Problem | Noted Date | + + + | Pre-diabetes | 03/27/2018 | + + + | Coronary artery disease involving swinomish coronary artery of | 03/28/2017 | | swinomish heart without angina pectoris | | + + + | Mixed dyslipidemia | 03/28/2017 | + + + Encounters +--------+---------+ + + + | Date | Type | Specialty | Care Team | Description | +--------+---------+ + + + | 04/14/ | Office | Cardiology | Noble Chatterjee, | Coronary artery | | 2020 | Visit | | MD | disease involving | | | | | | sw[place]omish coronary | | | | | | artery of sw[place]omish | | | | | | heart without angina | | | | | | pectoris (Primary | | | | | | Dx); Mixed | | | | | | dyslipidemia; | | | | | | Pre-diabetes | +--------+---------+ + + + from Last 3 Months Family History + + +------+ + | Medical History | Relation | Name | Comments | + + +------+ + | Hypertension | Mother | | | + + +------+ + + +------+ + + | Relation | Name | Status | Comments | + +------+ + + | Father | | | | + +------+ + + | Mother | | | | + +------+ + + | Mother | | | | + +------+ + + Social History + +-------+ +--------+------+ [...] + + + Last Filed Vital Signs + + + [...] | | + + + + + Plan of Treatment + + +-------+ + | Health Maintenance | Due Date | Last | Comments | | | | Done | | + + +-------+ + | Hepatitis C | | | | | Screening | 3 | | | + + +-------+ + | Med Mgmt: BUN | | | | | | 3 | | | + + +-------+ + | Med Mgmt: Cr | | | | | | 3 | | | + + +-------+ + | Medication | | | | | Management | 3 | | | + + +-------+ + | Hemoglobin A1c | | | | | Screening | 1 | | | + + +-------+ + | Vaccine: | | | | | Dtap/Tdap/Td (1 - | 2 | | | | Tdap) | | | | + + +-------+ + | Colorectal Cancer | | | | | Screening | 3 | | | | (Colonoscopy) | | | | + + +-------+ + | Vaccine: Zoster (1 | | | | | of 2) | 3 | | | + + +-------+ + | AAA Screening | | | | | | 8 | | | + + +-------+ + | Vaccine: | | | | | Pneumococcal 65+ (1 | 8 | | | | of 1 - PPSV23) | | | | + + +-------+ + | Adult Annual | | | | | Wellness Visit | 9 | | | + + +-------+ + | Statin Therapy | | | | | (optimal intensity) | 9 | | | + + +-------+ + | Vaccine: Influenza | | | | | (#1) | 0 | | | + + +-------+ + Procedures + +--------+ + + + | Procedure Name | Priori | Date/Time | Associated Diagnosis | Comments | | | ty | | | | + +--------+ + + + | LABS - EXTERNAL SCAN | | 04/02/2020 | | Results for this | | | | 12:00 AM | | procedure are in the | | | | PDT | | results section. | + +--------+ + + + from Last 3 Months Results LABS - EXTERNAL SCAN (04/02/2020 12:00 AM PDT) + + + | Narrative | Performed At | + + + | Ordered by an | | | unspecified provider. | | + + + from Last 3 Months Insurance + +--------+ +--------+ + +--------+ | Payer | Benefi | Subscriber | Effect | Phone | Address | Type | | | t Plan | ID | zuly | | | | | | / | | Dates | | | | | | Group | | | | | | + +--------+ +--------+ + +--------+ | MEDICARE | MEDICA | [id number] | 12/08/19 | [phone] | | Medica | | | RE | | 18-Pre | 5 | | re | | | PART A | | sent | | | | | | AND B | | | | | | + +--------+ +--------+ + +--------+ | [employer] [place] | MUTUAL | [id number] | 12/08/19 | [phone] | | Indemn | | | AND | | 18-Pre | 0 | | ity | | | [place] | | sent | | | | | | [place] | | | | | | | | MDCR | | | | | | | | SUPPL | | | | | | + +--------+ +--------+ + +--------+ | MODA | MODA | [id number] | | [phone] | [address] | PPO | | | [address] | | [phone] | [phone] | | | | [place] | | roshnient | | [place], | | | | [place] | | | | [place] [address] | | + +--------+ +--------+ + +--------+ + +--------+ +--------+ + + | Guarantor Name | Accoun | Relation to | Date | Phone | Billing Address | | | t Type | Patient | of | | | | | | | | | | + +--------+ +--------+ + + | Eduin Sousa | Person | Self [birth year] | [address] | | | al/[place] | | 1950 | [phone] | [place] [address] | | | [place] | | | 2 (Home) | | + +--------+ +--------+ + + | Eduin Sousa | Person | Self [birth year] | [address] | | | al/[place] | | 1951 | [phone] | [place] [address] | | | [place] | | | 2 (Home) | | + +--------+ +--------+ + + Advance Directives + + + + + | Type | Date Recorded | Patient | Explanation | | | | Power Sewing Machine Operator | | + + + + + | Power of | | | | | Quality Control Lab Technician | | | | + + + + + | Advance | | | | | Directive | | | | + + + + +
[~2020-04-16 14:58] MED LIST changes: +CIPRO500 MG PO; +METOPROLOL TART25 MG PO; +MOBIC7.5 MG PO; +PERCOCET 5-3251 EACH PO
[2020-04-16] MEDS ORDERED: CHILDREN'S ASPI81 M1 PO (15:34)
--- NOTE | 2020-04-18 11:26 | EKG ---
[facility] [address] [place], [place] [address] Signed Normal sinus rhythm Normal ECG When compared with ECG of 30-DEC-2019 13:08, No significant change was found Confirmed by DARINEL CMAACHO MD ([id number]) on 04/18/2020 11:26:08 AM Electronically Signed By: DARINEL CAMACHO MD 04/18/20 1126 PATIENT NAME: DEXTER RIVAS [place] Electrocardiogram DATE OF : 54 PHYSICIAN: DARINEL CAMACHO MD REPORT #: [id number] REPORT IS CONFIDENTIAL AND NOT TO BE RELEASED WITHOUT AUTHORIZATION
== END 2020-04-16 18:30 | disposition home or self-care (01) ==
LOC: ED 14:58
DX: G45.4 Transient global amnesia (principal); E78.5 Hyperlipidemia, unspecified; I25.10 Atherosclerotic heart disease of native coronary artery without angina pectoris; Z87.891 Personal history of nicotine dependence; Z79.899 Other long term (current) drug therapy; Z79.82 Long term (current) use of aspirin
CPT/HCPCS: 70450; 70496; 70498; 80053; 84484; 85025; 85610; 85730; 93005; 93010; 99284-25; Q9967

== ENCOUNTER 2020-08-06 06:55 | Day surgery (SDC) | payer MEDICARE, OTHER ==
[~2020-08-06] VITALS: Ht 180.3 cm; Wt 110.0 kg
[~2020-08-06 06:55] MED LIST changes: +CHILDREN'S ASPI81 M1 PO
[2020-08-06] MEDS ORDERED: MULTI VITAMIN1 EACH PO (07:07)
[2020-08-06] MEDS ORDERED: VITAMIN C125 MG PO (07:08)
[2020-08-06] MEDS ORDERED: DICLOFENAC SODI75 MG PO (08:38)
[2020-08-06] MEDS ORDERED: HYDROCODON-ACE1 EA10 PO (08:38)
--- NOTE | 2020-08-06 08:43 | NUR ---
08/06/20 0843 Annabelle Johnson 0835- PT ARRRIVES TO PACU NONAROUSABLE TO NOXIOUS STIMULI. PT NEEDING A JAW THRUST TO MAINTAIN A CLEAR AIRWAY HE IS SNORING AND HAS A HX OF SLEEP APNEA. THE JAW THRUST CLEARS HIS AIRWAY. RESP EVEN AND UNLABORED. OXYGEN SAT HIGH 90'S TO 100% ON 6L O2 VIA MASK. 0837- ICE PACK PLACED TO PT'S RIGHT KNEE WITH DRESSING IN BETWEEN SKIN AND ICE PACK.
--- NOTE | 2020-08-06 08:46 | NUR ---
PT ALERT, ORIENTED AND SUPPORTED BY HIS MARIYA. PT HAS NO NEEDS, OTHER THAN HE SAID, "I AM READY TO GET THIS OVER WITH". PT STATED HE WILL BE BACK IN 3 WKS FOR ANOTHER PROCEDURE. ALL OTHER QUESTIONS ASKED ANSWERED. PT REQUESTED PRAYER, WILL REMAIN. WILL FOLLOW NEEDED
--- NOTE | 2020-08-06 09:14 | NUR ---
Patient back to floor from PACU, bedside report from Lima VALENTIN. Patients reports no pain or nause. Dressing c/d/i. Strong pedal pulse. Provided patient with ice water and snacks. Call light within reach. Instructed patient to call when ready to get up, patient verbalized understanding.
--- NOTE | 2020-08-06 10:12 | NUR ---
LE 1000: PT ALERT AND ORIENTED. VSS, MILD PAIN NOTED. RX ADMINISTERED ORDERED. DRESSING REMAINS C/D/I WITH ICE APPLIED TO EXTREMITY. STRONG PEDAL PULSES, CAP REFILL <3 SECONDS. CONTS TO ZINA PO INTAKE. PREFERS TO WAIT 15 MORE MINUTES BEFORE ATTEMPTING VOID. ATTENTIVE AT THE BEDSIDE. FRESH ICE WATER PROVIDED. CALL LIGHT WITHIN REACH
--- NOTE | 2020-08-06 10:38 | NUR ---
PT UP TO BR WITH STANDBY ASSIST FROM THIS RN FOR FIST SUCCESSFUL POSTOP VOID. ZINA WELL, DENIES DIZZINESS AND SOB. BACK TO ROOM. STEADY GAIT. SL D/C'D WITH CATH TIP INTACT AND PT PREPARES FOR D/C. AT THE BEDSIDE, NO NEEDS VOICED. CALL LIGHT WITHIN REACH
--- NOTE | 2020-08-06 11:07 | NUR ---
LE 1050: D/C INSTRUCTIONS PROVIDED AND DISCUSSED ORDERED. PT AND VERBALIZE UNDERSTANDING AND DENY QUESTIONS AT THIS TIME. ENCD TO CONTACT CLINIC IF ANY ARISE. PT WHEELED OFF OF UNIT IN W/C. TRANSFERS INTO VEHICLE INDEPENDENTLY, RESP EVEN AND UNLABORED. NO PHYSICAL S/S OF DISTRESS AT THIS TIME
--- NOTE | 2020-08-07 14:30 | OR ---
[facility] [address], [place] [address] Signed DATE OF OPERATION: 08/06/2020 SURGEON: Cristina Whitt MD PREOPERATIVE DIAGNOSIS: Medial meniscus tear, right knee. POSTOPERATIVE DIAGNOSIS: Medial meniscus tear, right knee. PROCEDURE PERFORMED: Right knee arthroscopy with partial medial meniscectomy. DIGITAL CONTENT SPECIALIST: None. ANESTHESIA: General. BLOOD LOSS: Minimal. BRIEF HISTORY: Dexter is a 69-year-old gentleman with pain and catching in his knee. He had an MRI, which showed a significant medial meniscus tear and minimal arthrosis. Risks and benefits of operative were discussed with him. He elected to proceed. DESCRIPTION OF PROCEDURE: Once consent was obtained, he was taken to the operating room after adequate anesthesia. He was placed on the operating table. All downside pressure points were well padded. The left leg was flexed, abducted, and externally rotated on a well-padded leg lu. The right was placed in well-padded proximal thigh leg lu with no tourniquet. Portal sites were then preinjected using 0.25% Marcaine with epinephrine under an alcohol prep. The leg was then prepped and draped in a standard sterile fashion. Standard inferior lateral and superolateral portals were made. The scope was introduced in the knee. ARTHROSCOPIC FINDINGS: The knee had a significant synovitis throughout. The patella was noted to track well with no significant chondromalacia. Lateral compartment was clear of any meniscal tear or chondromalacia. ACL and PCL were intact. Medial Electronically Signed By: CRISTINA WHITT MD 08/07/20 1430 PATIENT NAME: DEXTER RIVAS OPERATIVE REPORT DATE OF : 54 REPORT #: [id number] PHYSICIAN: CRISTINA WHITT MD PCP: NERI POSEY PA-C REPORT IS CONFIDENTIAL AND NOT TO BE RELEASED WITHOUT AUTHORIZATION [facility] [address], [place] [address] Signed compartment showed diffuse grade 1 chondromalacia with no significant defects. The meniscus was noted to be torn in a degenerative pattern from the posterior horn all the way to the mid medial portion. There were unstable flaps throughout. Standard inferomedial portal was established after localization using a spinal needle. The straight and curved biters were then used to trim the meniscus tear back to a stable rim; this was then smoothed and feathered out using the shaver and all debris was evacuated. The scope was then withdrawn, portals were closed with 3-0 nylon, and the knee was injected with 60 mg Toradol at the end of the case. The wounds were then dressed with Adaptic, ABD, and Ramesh wrap. He tolerated the procedure well. All sponge, needle, and instrument counts were correct. Cristina Whitt MD BA/MODL /[id number] Copies: ~ Electronically Signed By: CRISTINA WHITT MD 08/07/20 1430 PATIENT NAME: DEXTER RIVAS OPERATIVE REPORT DATE OF : 54 REPORT #: [id number] PHYSICIAN: CRISTINA WHITT MD PCP: NERI POSEY PA-C REPORT IS CONFIDENTIAL AND NOT TO BE RELEASED WITHOUT AUTHORIZATION
== END 2020-08-06 10:50 | disposition home or self-care (01) ==
LOC: DS 06:55
PROVIDERS: ATTEND Specialist
PROC: 0SBC4ZZ Excision of Right Knee Joint, Percutaneous Endoscopic Approach (ICD-10-PCS; principal; 2020-08-06 08:00)
DX: M23.203 Derangement of unspecified medial meniscus due to old tear or injury, right knee (principal)
CPT/HCPCS: 01400; J0690; J1885; J2001; J2250; J2405; J2704; J7121

== ENCOUNTER 2020-08-30 06:30 | Day surgery (SDC) | payer MEDICARE, OTHER ==
[~2020-08-30] VITALS: Ht 180.3 cm; Wt 109.1 kg
[~2020-08-30 06:30] MED LIST changes: +DICLOFENAC SODI75 MG PO; +MULTI VITAMIN1 EACH PO; +VITAMIN C125 MG PO
--- NOTE | 2020-08-30 08:34 | NUR ---
ALL DOCUMENTATION DONE BY STUDENT NURSE VANESSA PUGA REVIWED BY THIS RN.
--- NOTE | 2020-08-30 09:22 | NUR ---
08/30/20 0922 Vivi Meng 0904 PT ARRIVED IN PACU SLEEPY WITH ROACH PRESENT. CLEAR YELLOW URINE PRESENT IN CATHETER TUBING. 919 RESTING. NO C/O'S.
--- NOTE | 2020-08-30 09:30 | NUR ---
PT ALERT, ORIENTED ANDSUPPORTED BY MARIYA. PT HAS HAD SEVERAL PROCEDURES LATELY AND IT SEEMS TO BE TAKING IT'S TOLL ON PT. ALL QUESTIONS ASKED ANSWERED AND MARIYA WILL REMAIN HERE FOR DC. WILL FOLLOW NEEDED
--- NOTE | 2020-08-30 09:46 | NUR ---
PATIENT IS BACK FROM PACU AND PLACED BACK TO TREATMENT ROOM. PATIENT REPORTS THE URGE TO URINTAE BUT IS VERBALLY REMINDED OF HIS URINARY CATHETER PLACEMENT. IN THE ROOM. CALL LIGHT WITHIN REACH. WATER AT BEDSIDE TABLE. NO DESIRE FOR FOOD AT THIS TIME. NO ADDITIONAL NEEDS AT THIS TIME.
[2020-08-30] MEDS ORDERED: OXYCODONE HCL5 MG PO (10:08)
[2020-08-30] MEDS ORDERED: LEVOFLOXACIN500 MG PO (10:09)
[2020-08-30] MEDS ORDERED: FINASTERIDE5 MG PO (10:10)
--- NOTE | 2020-08-30 10:51 | NUR ---
PT IS TOLERATING LIQUIDS AND JELLO. HE WOULD LIKE TO GO HOME AT THIS TIME. HE HAS MET ALL DC CRITERIA.
--- NOTE | 2020-08-30 10:57 | NUR ---
ROACH EMPTIED FOR 225MLS OF DARK YELLOW URINE.
--- NOTE | 2020-08-30 11:13 | NUR ---
PT IS GIVEN VERBAL DC INSTRUCTIONS WITH PRESENT, THEY ARE BOTH ABLE TO VERBALIZE UNDERSTANDING. NO QUESTIONS AT THIS TIME. PT IS TAKEN TO VEHICLE VIA WC, HE IS ABLE TO TRANSFER HIMSELF FROM WC TO VEHICLE.
--- NOTE | 2020-08-30 11:14 | NUR ---
ALL DOCUMENTATION AND NOTES COMPLETED BY SN ARE REVIEWED BY THIS RN.
--- NOTE | 2020-08-30 12:09 | OR ---
[facility] [address] [place], [place] [address] Signed DATE OF OPERATION: 08/30/2020 SURGEON: Jason Peters MD PREOPERATIVE DIAGNOSES: 1. Possible bladder tumor recurrence in a patient with a history of superficial low-grade bladder cancer. 2. Regrowth of prostate adenoma, status post TURP in January of 2020. POSTOPERATIVE DIAGNOSES: 1. No evidence of recurrence of superficial low-grade bladder cancer. 2. Moderate regrowth of prostate adenoma, status post TURP in January 2020. NAMES OF PROCEDURES: 1. Diagnostic cystourethroscopy. 2. Urethral dilation using Oneida sounds from 14-Azerbaijani to 28-Azerbaijani. 3. Redo-transurethral resection of the prostate. ANESTHESIA: General. ESTIMATED BLOOD LOSS: Minimal. COMPLICATIONS: None. SPECIMENS: Prostate chips obtained via transurethral resection of the prostate, sent to the lab for pathological analysis. DRAINS: A 20-Azerbaijani two-way Bello catheter, connected to gravity. INDICATIONS FOR PROCEDURE: Mr. Sousa is a very pleasant 69-year-old gentleman with a history of CVA, who is well known to me. He underwent standard transurethral resection of the prostate in January of 2020 for BPH with lower urinary tract symptoms. He also has a history of low-grade superficial bladder cancer and underwent transurethral resection of his low-grade bladder tumor also in January of 2020. He had recently presented to me for surveillance Electronically Signed By: JASON PETERS MD 08/30/20 6904 PATIENT NAME: DEXTER SOUSA OPERATIVE REPORT DATE OF : 54 REPORT #: [id number] PHYSICIAN: JASON PETERS MD PCP: NERI POSEY PA-C REPORT IS CONFIDENTIAL AND NOT TO BE RELEASED WITHOUT AUTHORIZATION [facility] [address] [place], [place] [address] Signed cystoscopy which at that time I could appreciate what appeared to be a patch of erythema just superior to the trigone on the posterior bladder wall. Also at that time, I noted rather significant regrowth of his prostatic adenoma in the form of bulbous growths noted in the prostatic urethra, which is a typical pattern for prostate regrowth after TURP. After discussion of the risks and benefits, the patient elected to undergo a redo-TURP along with transurethral resection of a possible bladder tumor recurrence located on the posterior bladder wall. He has been off his blood thinning medications for one week now. OPERATIVE FINDINGS: On cystoscopy, there was no evidence of any suspicious masses, lesions, or tumors. Bilateral ureteral orifices are in their normal anatomic location effluxing clear urine. More notably, I do not see any evidence of patchy erythema on the posterior bladder wall as I had seen before on cystoscopy. His previous tumor resection site has also healed significantly since his last cystoscopy. The patient's fossa navicularis was dilated from 14-Azerbaijani to 28-Azerbaijani using Oneida sounds without difficulty. Ureteroscopy revealed mild amount of tissue necrosis status post his 1st TURP. This was located primarily at the base of his previous resection site. There were a good deal of bulbous regrowth of prostate adenoma, two of which were noted on the right lateral lobe of the prostate and one near the bladder neck on the left side. These were resected using a 24-Azerbaijani bipolar loop without difficulty. There was very minimal bleeding this time around during the resection. At the end of the procedure, a 20-Azerbaijani two-way Bello catheter was inserted into the patient's bladder over a Sensor wire. The catheter was placed without difficulty and manually irrigated quite easily confirming proper positioning. Digital rectal examination was performed today, which revealed a 40 g prostate with no obvious palpable nodules. DESCRIPTION OF PROCEDURE: After informed consent was obtained, the patient was taken back to the operating room. [facility] table where general anesthesia was induced. He was placed in the dorsal lithotomy position. In addition, his genitalia were prepped and draped in a standard sterile fashion. Prior to prepping and draping, the patient underwent a digital rectal examination which revealed no evidence of any suspicious palpable nodules. Once he was prepped and draped, a diagnostic cystoscopy was performed using a 30-degree lens on a 22.5-Azerbaijani introducer. Please see above findings. The cystoscope was removed and a 26-Azerbaijani sheath was inserted using a Electronically Signed By: JASON PETERS MD 08/30/20 1209 PATIENT NAME: DEXTER SOUSA OPERATIVE REPORT DATE OF : 54 REPORT #: [id number] PHYSICIAN: JASON PETERS MD PCP: NERI POSEY PA-C REPORT IS CONFIDENTIAL AND NOT TO BE RELEASED WITHOUT AUTHORIZATION [facility] [address] [place] [id number] Signed visual obturator. The visual obturator was removed and a resectoscope was inserted. Since I did not see any active evidence of tumor recurrence, I was able to cauterize just slightly the area of his previous tumor resection. As stated above, this area had healed quite nicely in comparison to his previous cystoscopy. Since there was no evidence of tumor recurrence, I then turned my attention to the regrowth of his prostatic adenoma. The 24-Azerbaijani bipolar loop was used to resect the bilateral prostate adenomas that had regrown since his previous TURP. This was done without difficulty and with minimal bleeding. I then discovered some residual prostate gland that had not been resected prior. This was resected on both sides without difficulty. Once I was satisfied yet again then an adequate channel had been created, I used the bipolar loop to cauterize any residual actively bleeding vessels on both sides. I did not perform any resection of the anterior prostatic urethra today. The patient's bladder was irrigated thoroughly using a Radha syringe and the prostate chips were placed in a specimen cup to be sent to pathology for evaluation. Once I was satisfied that hemostasis had been achieved, I removed the resectoscope. I placed a 0.035 Sensor wire through the sheath and into the patient's bladder. The sheath was then removed fully intact. Over the wire, I passed a 20-Azerbaijani two-way Bello catheter into the patient's bladder without difficulty. The balloon was filled with approximately 22 mL of water. The catheter was then manually irrigated to be sure there were no residual fragments of tissue. The catheter irrigated quite cleanly with no evidence of any active bleeding. I then might repeat a digital rectal examination to ensure prior findings. The patient's Bello catheter was connected to gravity drainage and the procedure was then terminated. The patient tolerated the procedure well without any complication. He will now be transferred to the postanesthesia care unit in stable condition. DISPOSITION: I discussed the details of today's procedure with the patient's and answered all of her questions. I notified her that I did not see any evidence of tumor recurrence on today's cystoscopy, so therefore no TURBT was performed. The redo-TURP was performed without difficulty and I told her he would need to come back in two days to clinic to undergo a voiding trial. He will be sent home today with Levaquin 500 mg p.o. daily for a total of 10 days, along with oxycodone 5 mg p.o. q.4 to 6 hours p.r.n. pain dispense #20. He will be started on daily finasteride to prevent future regrowth of his prostate adenoma. I notified the patient's today that this could result in decreased libido and erectile function. The patient's reports that they have not been sexually active for a few years now. I also informed her that starting on finasteride will ultimately cut his PSA value in half and that his PSA value will need to be doubled in the future. After he undergoes a voiding trial in a couple of days, he will be scheduled to undergo his next surveillance cystoscopy in approximately three months. Electronically Signed By: JASON PETERS MD 08/30/20 1209 PATIENT NAME: DEXTER SOUSA OPERATIVE REPORT DATE OF : 54 REPORT #: [id number] PHYSICIAN: JASON PETERS MD PCP: NERI POSEY PA-C REPORT IS CONFIDENTIAL AND NOT TO BE RELEASED WITHOUT AUTHORIZATION [facility] [address] [place] [id number] Signed Jason Peters, MD AR/MODL /[id number] Copies: ~ Electronically Signed By: JASON PETERS MD 08/30/20 1209 PATIENT NAME: DEXTER SOUSA OPERATIVE REPORT DATE OF : 54 REPORT #: [id number] PHYSICIAN: JASON PETERS MD PCP: NERI POSEY PA-C REPORT IS CONFIDENTIAL AND NOT TO BE RELEASED WITHOUT AUTHORIZATION
--- NOTE | 2020-09-01 08:55 | PATH ---
[facility] [address] [facility] [place], [place] [address] Signed SPECIMEN(S): A PROSTATE CHIPS (TUR) SPECIMEN SOURCE: A. PROSTATE CHIPS (TUR) CLINICAL HISTORY: Pre: BPH, bladder tumor. Post: TURP, no evidence of bladder tumor. FINAL PATHOLOGIC DIAGNOSIS: Prostate chips, transurethral resection: - Benign prostatic hyperplasia. - Fragments of urothelium with cystitis cystica/glandularis, mixed acute and chronic inflammation with reactive changes, and nonkeratinizing squamous metaplasia with associated calcifications. COMMENT: The non-keratinizing squamous metaplasia is extensive, but there is no evidence of dysplasia or malignancy. As part of [facility] Quality Improvement Program, this case was reviewed by another member of our pathology staff. NAL:NRT:cml:C2NR MICROSCOPIC EXAMINATION: Histologic sections of all submitted blocks are examined by light microscopy. These findings, together with the gross examination, support the pathologic diagnosis. GROSS DESCRIPTION: The specimen, labeled "DF," and designated on the requisition "prostate chips," is received in formalin and consists of multiple irregular pieces of pink-ernst to hemorrhagic, soft to rubbery tissue (5 gram, 5.5 x 4.5 x 1.0 cm in aggregate). The specimen is submitted entirely in cassettes (A1-A4). AC (under the direct supervision of a pathologist) The Gross Description was prepared using a voice recognition system. The report was reviewed for accuracy; however, sound-alike word errors, addition and/or deletions may occur. If there is any question about this report, please contact Client Services. PERFORMING LABORATORY: The technical component was performed by [facility], [facility], PATIENT NAME: DEXTER RIVAS PATHOLOGY DATE OF : 54 REPORT #: [id number] PHYSICIAN: MEGHAN RODRIGUEZ PCP: NERI POSEY PA-C REPORT IS CONFIDENTIAL AND NOT TO BE RELEASED WITHOUT AUTHORIZATION [facility] [address] [place], [place] [address] [place] [address] (Plant Operations Engineer: Felicita Tse MD; CLIA# [id number]). Professional interpretation was performed by [facility], [address] [address] (CLIA# [id number]). Diagnostician: Aga Enciso MD Pathologist Electronically Signed 09/01/2020 Copies: ~ PATIENT NAME: DEXTER RIVAS PATHOLOGY DATE OF : 54 REPORT #: [id number] PHYSICIAN: MEGHAN RODRIGUEZ PCP: NERI POSYE PA-C REPORT IS CONFIDENTIAL AND NOT TO BE RELEASED WITHOUT AUTHORIZATION
== END 2020-08-30 11:05 | disposition home or self-care (01) ==
LOC: DS 06:30 → OPS 06:30 → DS 06:45 → OPS 06:45
PROVIDERS: ATTEND Urology
PROC: 0TJB8ZZ Inspection of Bladder, Via Natural or Artificial Opening Endoscopic (ICD-10-PCS; principal; 2020-08-30 06:45)
DX: N40.1 Benign prostatic hyperplasia with lower urinary tract symptoms (principal); C67.0 Malignant neoplasm of trigone of bladder; R31.29 Other microscopic hematuria; R39.89 Other symptoms and signs involving the genitourinary system; Z12.5 Encounter for screening for malignant neoplasm of prostate
CPT/HCPCS: 00914; C1769; J0131; J0690; J1100; J1885; J2001; J2405; J2704; J3010; J7121

== ENCOUNTER 2021-07-19 15:05 | Emergency (ER) | payer MEDICARE, BC ==
[~2021-07-19] VITALS: Ht 180.3 cm; Wt 111.1 kg
[~2021-07-19 15:05] MED LIST changes: +FINASTERIDE5 MG PO; +LEVOFLOXACIN500 MG PO; +OXYCODONE HCL5 MG PO
[2021-07-19] MEDS ORDERED: VALSARTAN160 MG PO (15:22)
[2021-07-19] MEDS ORDERED: METOPROLOL SUC100 MG PO (15:22)
[2021-07-19] MEDS ORDERED: ATORVASTATIN CA80 MG PO (15:23)
[2021-07-19] MEDS ORDERED: CLOPIDOGREL75 MG PO (15:24)
[2021-07-19] MEDS ORDERED: VITAMIN K2100 MCG PO (15:24)
--- NOTE | 2021-07-19 22:02 | EKG ---
[facility] [address] [facility] [place], [place] [address] Signed Sinus bradycardia Otherwise normal ECG When compared with ECG of 04-AUG-2020 15:04, No significant change was found Confirmed by ALBIN POST DO ([id number]) on 07/19/2021 10:01:56 PM Electronically Signed By: ALBIN POST DO 07/19/212201 PATIENT NAME: DEXTER RIVAS Electrocardiogram DATE OF : 54 PHYSICIAN: ALBIN POST DO REPORT #: [id number] REPORT IS CONFIDENTIAL AND NOT TO BE RELEASED WITHOUT AUTHORIZATION
== END 2021-07-19 17:47 | disposition home or self-care (01) ==
LOC: ED 15:05
DX: R55 Syncope and collapse (principal); E78.5 Hyperlipidemia, unspecified; I25.10 Atherosclerotic heart disease of native coronary artery without angina pectoris; Z87.891 Personal history of nicotine dependence; Z79.899 Other long term (current) drug therapy; Z79.82 Long term (current) use of aspirin
CPT/HCPCS: 80053; 83735; 84484; 85025; 93005; 93010; 99284-25